=== PATIENT | male | born 1985 | race Caucasian/White ===

== ENCOUNTER 2022-06-13 13:08 | Emergency (ER) | payer MEDICAID ==
[~2022-06-13] VITALS: Ht 175.3 cm; Wt 137.0 kg
[2022-06-13] MEDS ORDERED: KETOROLAC 30MG/ML VIAL IV NR (14:30)
[2022-06-13 14:47] LABS: BASOPHILS % 1.1 % (0.0-2.0); EOSINOPHILS % 1.5 % (0.0-5.0); HEMATOCRIT. 40.7 % (42.0-52.0); HEMOGLOBIN. 13.9 g/dL (14.0-18.0); LYMPHOCYTES % 23.1 % (20.0-50.0); MEAN CORPUSCULAR HEMOGLOBIN 29.4 pg (28.0-32.0); MEAN CORPUSCULAR VOLUME 86.3 fL (80.0-94.0); MEAN PLATELET VOLUME 10.3 fl (7.4-10.4); MONOCYTES % 6.2 % (2.0-8.0); NEUTROPHILS % 68.1 % (40.0-76.0); PLATELET 193 x1000/uL (130-400); RED BLOOD CELL COUNT 4.71 mill/uL (4.7-6.1); RED CELL DISTRIBUTION WIDTH 13.2 % (11.6-14.6)
[2022-06-13 14:56] LABS: CHLORIDE 108 mEq/L (98-107)
[2022-06-13 15:04] LABS: ETHANOL BLOOD < 10 mg/dL
[2022-06-13] MEDS ORDERED: HALOPERIDOL LACTATE 5MG/ML VIAL IM NR (16:30)
[2022-06-13] MEDS ORDERED: LORAZEPAM 2MG/ML CPJ IM NR (16:30)
[2022-06-13] MEDS ORDERED: DIPHENHYDRAMINE 50MG/ML VIAL IM NR (16:30)
[2022-06-14] MEDS ORDERED: DIPHENHYDRAMINE 50MG/ML VIAL IV ONE (01:00)
[2022-06-14] MEDS ORDERED: HALOPERIDOL LACTATE 5MG/ML VIAL IM PRN (09:15)
[2022-06-14] MEDS: OLANZAPINE 5MG TABLET ODT PO SCH ×2 (11:04→17:00)
[2022-06-14] MEDS ORDERED: OLANZAPINE 10 MG/VIAL IM ONE (13:45)
[2022-06-14] MEDS ORDERED: LORAZEPAM 2MG/ML CPJ IM ONE (17:30)
[2022-06-14] MEDS ORDERED: HALOPERIDOL LACTATE 5MG/ML VIAL IM ONE (17:30)
[2022-06-14] MEDS ORDERED: DIPHENHYDRAMINE 50MG/ML VIAL IM ONE (17:30)
[2022-06-15 04:00] VITALS: BP 120/71
[2022-06-15] MEDS: OLANZAPINE 5MG TABLET ODT PO SCH (09:00)
== END 2022-06-15 11:02 | disposition home or self-care (01) ==
LOC: ER 13:08 → EDBD 13:08 → ER 06-15 11:02
DX: F99 Mental disorder, not otherwise specified (principal)
CPT/HCPCS: 36415; 80053; 80320; 83605; 83690; 85025; 96372; 96374; 96375; 99285; J1200; J1630; J1885; J2060; G0480

== ENCOUNTER 2022-06-16 01:41 | Emergency (ER) | payer MEDICAID, OTHER ==
[~2022-06-16] VITALS: Ht 170.2 cm; Wt 140.0 kg
[2022-06-16] MEDS ORDERED: LORAZEPAM 2MG/ML CPJ IM ONE (02:30)
[2022-06-16] MEDS ORDERED: DIPHENHYDRAMINE 50MG/ML VIAL IM ONE (02:30)
[2022-06-16] MEDS ORDERED: HALOPERIDOL LACTATE 5MG/ML VIAL IM ONE (02:30)
[2022-06-16 03:30] LABS: BASOPHILS % 0.6 % (0.0-2.0); CHLORIDE 103 mEq/L (98-107); EOSINOPHILS % 0.9 % (0.0-5.0); HEMATOCRIT. 41.5 % (42.0-52.0); HEMOGLOBIN. 14.2 g/dL (14.0-18.0); LYMPHOCYTES % 26.9 % (20.0-50.0); MEAN CORPUSCULAR HEMOGLOBIN 29.5 pg (28.0-32.0); MEAN CORPUSCULAR VOLUME 86.1 fL (80.0-94.0); MEAN PLATELET VOLUME 10.4 fl (7.4-10.4); MONOCYTES % 6.7 % (2.0-8.0); NEUTROPHILS % 64.9 % (40.0-76.0); PLATELET 223 x1000/uL (130-400); RED BLOOD CELL COUNT 4.81 mill/uL (4.7-6.1); RED CELL DISTRIBUTION WIDTH 13.4 % (11.6-14.6)
[2022-06-16 03:38] LABS: ETHANOL BLOOD < 10 mg/dL
[2022-06-16 04:38] LABS: *AMPHETAMINES SCREEN URINE NEGATIVE (NEGATIVE); *BARBITURATES SCREEN URINE NEGATIVE (NEGATIVE); *BENZODIAZEPINES SCREEN URINE NEGATIVE (NEGATIVE); *COCAINE SCREEN URINE NEGATIVE (NEGATIVE); CANNABINOID URINE SCREEN NEGATIVE (NEGATIVE); METHADONE URINE SCREEN NEGATIVE (NEGATIVE); OPIATES URINE SCREEN PRESUMTIVE POSITIVE (NEGATIVE); PHENCYCLIDINE URINE SCREEN NEGATIVE (NEGATIVE)
[2022-06-16] MEDS: HALOPERIDOL 5MG TABLET PO SCH (12:37)
[2022-06-16] MEDS ORDERED: OLANZAPINE 10 MG/VIAL IM ONE (16:45)
[2022-06-16] MEDS ORDERED: BENZTROPINE MESYLATE 1MG TABLET PO SCH (21:00)
[2022-06-17] MEDS: HALOPERIDOL 5MG TABLET PO SCH ×3 (07:47→17:00)
[2022-06-17] MEDS ORDERED: BENZTROPINE MESYLATE 0.5MG TABLET PO SCH (09:00)
[2022-06-17] MEDS ORDERED: ACETAMINOPHEN 325MG TABLET PO ONE (12:45)
[2022-06-17 17:33] VITALS: BP 130/72
== END 2022-06-17 16:00 | disposition short-term general hospital (02) ==
LOC: ER 01:41
DX: F20.9 Schizophrenia, unspecified (principal); F91.8 Other conduct disorders; R45.850 Homicidal ideations; Z20.822 Contact with and (suspected) exposure to COVID-19; Z75.1 Person awaiting admission to adequate facility elsewhere
CPT/HCPCS: 36415; 80053; 80305; 80307; 80320; 80329; 85025; 87426; 93005; 96372; 99285; C9803; J1200; J1630; J2060; J3490; U0003; U0005; G0480

== ENCOUNTER 2022-06-24 16:24 | Emergency (ER) | payer MEDICAID ==
[~2022-06-24] VITALS: Ht 182.9 cm; Wt 77.0 kg
[2022-06-24] MEDS ORDERED: MORPHINE SULFATE 4 MG/ML CPJ (NOT FOR IM USE) IV STA (16:56)
[2022-06-24] MEDS ORDERED: ONDANSETRON HCL 4MG/2ML INJ IV STA (16:56)
[2022-06-24] MEDS ORDERED: SODIUM CHLORIDE 0.9% 1,000 ML IV ONE ×2 (17:00→20:45)
[2022-06-24 17:28] LABS: BASOPHILS % 0.3 % (0.0-2.0); EOSINOPHILS % 0.3 % (0.0-5.0); HEMATOCRIT. 40.6 % (42.0-52.0); HEMOGLOBIN. 13.6 g/dL (14.0-18.0); LYMPHOCYTES % 7.5 % (20.0-50.0); MEAN CORPUSCULAR HEMOGLOBIN 29.2 pg (28.0-32.0); MEAN CORPUSCULAR VOLUME 86.9 fL (80.0-94.0); MEAN PLATELET VOLUME 9.8 fl (7.4-10.4); MONOCYTES % 5.5 % (2.0-8.0); NEUTROPHILS % 86.4 % (40.0-76.0); PLATELET 163 x1000/uL (130-400); RED BLOOD CELL COUNT 4.67 mill/uL (4.7-6.1); RED CELL DISTRIBUTION WIDTH 13.1 % (11.6-14.6)
[2022-06-24 17:34] LABS: CHLORIDE 102 mEq/L (98-107)
[2022-06-24 18:12] LABS: CLARITY URINE CLEAR (CLEAR); COLOR URINE YELLOW (YELLOW); KETONES URINE TRACE (NEGATIVE); LEUKOCYTE ESTERASE URINE NEGATIVE (NEGATIVE); NITRITE URINE NEGATIVE (NEGATIVE); OCCULT BLOOD URINE NEGATIVE (NEGATIVE); PROTEIN URINE TRACE (NEGATIVE); SPECIFIC GRAVITY URINE 1.034 (1.005-1.030)
[2022-06-24] MEDS ORDERED: IOHEXOL-300 100 ML BOTTLE ONE (20:18)
[2022-06-24] MEDS ORDERED: AZITHROMYCIN 500 MG TABLET PO ONE (20:45)
[2022-06-24] MEDS ORDERED: ACETAMINOPHEN 325MG TABLET PO ONE (20:45)
[2022-06-24] MEDS ORDERED: AZIT500T8 MT (21:16)
[2022-06-24] MEDS ORDERED: ONDA4TAB50 MT (21:16)
[2022-06-24 22:00] VITALS: BP 128/84
== END 2022-06-24 22:15 | disposition home or self-care (01) ==
LOC: ER 16:24
DX: K52.9 Noninfective gastroenteritis and colitis, unspecified (principal)
CPT/HCPCS: 36415; 74177; 80053; 81003; 83605; 83690; 85025; 96361; 96374; 96375; 99285; J2270; J2405; J7030; Q9967

== ENCOUNTER 2022-07-12 18:47 | Emergency (ER) | payer MEDICAID ==
[~2022-07-12] VITALS: Ht 182.9 cm; Wt 165.2 kg
[~2022-07-12 18:47] MED LIST: AZIT500T8 MT; ONDA4TAB50 MT
[2022-07-12 20:13] VITALS: BP 117/80
[2022-07-12] MEDS ORDERED: IBUPROFEN 600MG TABLET PO ONE (22:45)
== END 2022-07-12 20:00 | disposition left against medical advice (07) ==
LOC: ER 18:47
DX: S09.8XXA Other specified injuries of head, initial encounter (principal); M25.552 Pain in left hip; M54.9 Dorsalgia, unspecified; E11.9 Type 2 diabetes mellitus without complications; W01.0XXA Fall on same level from slipping, tripping and stumbling without subsequent striking against object, initial encounter; Y93.9 Activity, unspecified; Y92.9 Unspecified place or not applicable; Z88.6 Allergy status to analgesic agent; Z88.8 Allergy status to other drugs, medicaments and biological substances
CPT/HCPCS: 73502; 99283

== ENCOUNTER 2022-07-13 00:10 | Emergency (ER) | payer MEDICAID, OTHER ==
[~2022-07-13] VITALS: Ht 182.9 cm; Wt 105.0 kg
[2022-07-13 00:25] VITALS: BP 140/80
== END 2022-07-13 00:40 | disposition left against medical advice (07) ==
LOC: ER 00:10
DX: S09.90XA Unspecified injury of head, initial encounter (principal); E11.9 Type 2 diabetes mellitus without complications; Z88.6 Allergy status to analgesic agent; Z88.5 Allergy status to narcotic agent; X58.XXXA Exposure to other specified factors, initial encounter; Y93.89 Activity, other specified; Y92.89 Other specified places as the place of occurrence of the external cause; Y99.8 Other external cause status
CPT/HCPCS: 99283

== ENCOUNTER 2022-07-13 01:12 | Emergency (ER) | payer MEDICAID, OTHER ==
[~2022-07-13] VITALS: Ht 185.4 cm; Wt 127.0 kg
[2022-07-13 01:14] VITALS: BP 112/63
== END 2022-07-13 01:25 | disposition home or self-care (01) ==
LOC: ER 01:12
DX: S09.90XA Unspecified injury of head, initial encounter (principal); Z88.5 Allergy status to narcotic agent; Z88.6 Allergy status to analgesic agent; W18.30XA Fall on same level, unspecified, initial encounter; Y93.89 Activity, other specified; Y92.89 Other specified places as the place of occurrence of the external cause; Y99.8 Other external cause status
CPT/HCPCS: 99283